=== PATIENT | female | born 1965 | race Caucasian/White ===

== ENCOUNTER 2016-10-21 14:31 | Emergency (ER) | payer OTHER ==
[2016-10-21 15:18] VITALS: TEMP 98; BMI 30.7
[2016-10-21 16:38] LABS: BASOPHIL 1.3 % (0-2.0); EOSINOPHIL 1.5 % (0-4.5); MCH 30.4 pg (25.7-33.7); MCHC 33.4 g/dl (32.0-36.0); MEAN CELL VOLUME 91.2 fl (80-96); NEUTROPHILS 61.5 % (42.8-82.8); PLATELET COUNT 381 K/MM3 (134-434); RDW 14.5 % (11.6-15.6); WHITE BLOOD COUNT 10.3 K/mm3 (4.0-10.0)
[2016-10-21 16:54] LABS: INR 1.05 (0.82-1.09); PROTHROMBIN TIME (PATIENT) 11.6 SEC (9.98-11.88)
[2016-10-21 17:12] LABS: ALBUMIN 3.7 g/dl (3.4-5.0); ANION GAP 9 (8-16); BILIRUBIN,TOTAL 0.4 mg/dL (0.2-1.0); CALCIUM 8.9 mg/dL (8.5-10.1); CO2 26 mmol/L (21-32); CREATININE 0.7 mg/dL (0.55-1.02); GLUCOSE,RANDOM 84 mg/dL (74-106); MAGNESIUM 2.1 mg/dL (1.8-2.4); SGOT/AST 12 U/L (15-37); SGPT/ALT 27 U/L (12-78)
[2016-10-21 17:14] LABS: ALK PHOS 80 U/L (45-117); TROPONIN I < 0.02 ng/ml (0.00-0.05)
--- NOTE | 2016-10-21 17:24 | EKG ---
Test Reason : Blood Pressure : / mmHG Vent. Rate : 048 BPM Atrial Rate : 048 BPM P-R Int : 170 ms QRS Dur : 076 ms QT Int : 424 ms P-R-T Axes : 042 052 049 degrees QTc Int : 378 ms SINUS BRADYCARDIA OTHERWISE NORMAL ECG WHEN COMPARED WITH ECG OF 18-AUG-2015 13:04, NO SIGNIFICANT CHANGE WAS FOUND Confirmed by PAM MADDEN MD ([id number]) on 10/21/2016 5:23:58 PM Referred By: Confirmed By:PAM MADDEN MD
[2016-10-21] MEDS ORDERED: ACETAMINOPHEN 325 MG TABLET (FP) PO ONE (17:34)
--- NOTE | 2016-10-21 17:35 | PDOC ---
History of Present Illness <Kamille Camacho - Last Filed: 10/21/16 17:45> - General History Source: Patient Exam Limitations: No Limitations <Tip Villalta - Last Filed: 10/26/16 02:26> - General Chief Complaint: Chest Pain Stated Complaint: SENT BY PCP Time Seen by Provider: 10/21/16 16:18 - History of Present Illness Initial Comments: 10/21/16 19:33 Patient is a 51 year old female with significant medical hx of GERD, cervical CA , and HLD who is presenting to the ED with one week of neck pain and several days of chest pain. The patient states she was washing dishes when she developed her neck pain. Her pain worsens with moving her head and positional change. The patient then developed left sided chest pain that is diffuse and worsens when she has the neck pain. She states when her pain is neck pain is intense she feels associated dizziness. The patient endorses feeling generalized weakness today. Denies fever, chills, nausea, vomiting, diarrhea. The pt denies worsening of the pain on exertion. Pt dnies any vision changes, facial numbnes/tingling, extremity numbness/ tingling/weakness. no hx of cad, denies smoking (Tip Villalta) Past History <Kamille Camacho - Last Filed: 10/21/16 17:45> - Past Medical History Cancer: Yes (CERVICAL) GI Disorders: Yes (GERD, DIVERTICULOSIS) Hypercholesterolemia: Yes - Surgical History Orthopedic Surgery: Yes (RT.ROTATOR CUFF 2002) - Psycho/Social/Smoking Cessation Hx Anxiety: No Suicidal Ideation: No Smoking History: Never smoked Have you smoked in the past 12 months: No Hx Alcohol Use: No Drug/Substance Use Hx: No Substance Use Type: None <Tip Villalta - Last Filed: 10/26/16 02:26> - Past Medical History Allergies/Adverse Reactions: Allergies Allergy/AdvReac Type Severity Reaction Status Date / Time No Known Allergies Allergy Verified 10/21/16 15:15 Home Medications: Ambulatory Orders Ibuprofen 800 mg PO TID #30 tablet 10/21/16 Methocarbamol [Robaxin -] 500 mg PO TID #30 tablet 10/21/16 Review of Systems <Kamille Camacho - Last Filed: 10/21/16 17:45> - Review of Systems Able to Perform ROS?: Yes <Tip Villalta - Last Filed: 10/26/16 02:26> - Review of Systems Comments:: 10/21/16 19:34 CONSTITUTIONAL: Reported: Generalized Weakness No reported: Fever, Chills, Diaphoresis, Malaise, Loss of Appetite HEENT: No reported: Rhinorrhea, Nasal Congestion, Throat Pain, Throat Swelling, Difficulty Swallowing, Mouth Swelling, Ear Pain, Eye Pain, Visual Changes CARDIOVASCULAR: Reported: Chest Pain No reported: Syncope, Palpitations, Irregular Heart Rate, Lightheadedness, Peripheral Edema RESPIRATORY: No reported: Cough, Shortness of Breath, SOB with Exertion, Orthopnea, Wheezing , Stridor, Hemoptysis GASTROINTESTINAL: No reported: Abdominal pain, Abdominal Distension, Nausea, Vomiting, Diarrhea, Constipation, Melena, Hematochezia GENITOURINARY: No reported: Dysuria, Frequency, Urgency, Hesitancy, Flank Pain, Genital Pain MUSCULOSKELETAL: Reported: Neck Pain No reported: Myalgia, Arthralgia, Joint Swelling, Back pain SKIN: No reported: Rash, Itching, Pallor HEMEATOLOGIC/IMMUNOLOGIC: No reported: Easy Bleeding, Easy Bruising, Lymphadenopathy, Frequent infections ENDOCRINE: No reported: Unexplained Weight Gain, Unexplained Weight Loss, Heat Intolerance , Cold Intolerance NEUROLOGIC: Reported: Dizziness No reported: Headache, Focal Weakness, Paresthesias, Lightheadedness, Unsteady Gait, Seizure, Mental Status Changes, Incontinence PSYCHIATRIC: No reported: Anxiety, Depression (PawanTip) *Physical Exam <Kamille Camacho - Last Filed: 10/21/16 17:45> <Tip Villalta - Last Filed: 10/26/16 02:26> - Vital Signs Last Vital Signs Temp Pulse Resp BP Pulse Ox 98 F 65 18 145/65 99 10/21/16 15:15 10/21/16 18:38 10/21/16 18:38 10/21/16 18:38 10/21/16 18:38 - Physical Exam Comments: 10/21/16 19:34 GENERAL: The patient is awake, alert, and fully oriented, Nontoxic - in no acute distress. HEAD: Normocephalic, atraumatic. EYES: extraocular movements intact, sclera anicteric, conjunctiva clear. ENT: Normal voice, Moist mucous membranes. NECK: Normal range of motion, supple, no carotid bruit, mild diffuse tenderness of trapezius b/l LUNGS: Breath sounds equal, clear to auscultation bilaterally. No wheezes, no rhonchi, no rales. HEART: Regular rate and rhythm, normal S1 and S2 without murmur, rub or gallop. ABDOMEN: Soft, nontender, normoactive bowel sounds. No guarding, no rebound. . No CVA tenderness EXTREMITIES: Normal range of motion, no edema. No clubbing or cyanosis. No cords, erythema, or tenderness. NEUROLOGICAL: No facial assymetry, Normal speech, PSYCH: Normal mood, normal affect. SKIN: Warm, Dry, normal turgor, (Tip Villalta) Heart Score/ECG Review <Kamille Camacho - Last Filed: 10/21/16 17:45> <Tip Villalta - Last Filed: 10/26/16 02:26> - ECG Impressions Comment:: 10/21/16 18:47 Twelve-lead EKG was performed and reviewed by me. There is normal sinus rhythm with a rate of [address] changes suggestive of acute ischemia normal axis normal r wave progression impression: sinus bradycardia (Tip Villalta) ED Treatment Course - LABORATORY CBC & Chemistry Diagram: 10/21/16 15:40 10/21/16 15:40 <Kamille Camacho - Last Filed: 10/21/16 17:45> - LABORATORY CBC & Chemistry Diagram: 10/21/16 15:40 10/21/16 15:40 <Tip Villalta - Last Filed: 10/26/16 02:26> - ADDITIONAL ORDERS Additional order review: 10/21/16 15:40 RBC 4.36 MCV 91.2 MCHC 33.4 RDW 14.5 MPV 9.0 D Neutrophils % 61.5 Lymphocytes % 27.4 Monocytes % 8.3 Eosinophils % 1.5 Basophils % 1.3 - RADIOLOGY Radiology Studies Ordered: Category Date Time Status NECK CTA [CT] Stat CT Scan 10/21/16 17:34 Completed Radiograph Interpretation: 10/21/16 17:46 Chest X-Ray Impression: No acute pathology. Reported By: Alcon Cuba MD (Kamille Camacho) - Medications Given in the ED: ED Medications Discontinued Medications Generic Name Dose Route Start Last Admin Trade Name Debra PRN Reason Stop Dose Admin Acetaminophen 650 mg 10/21/16 17:34 10/21/16 18:14 Tylenol - PO 10/21/16 17:35 650 mg ONCE ONE Administration Ibuprofen 800 mg 10/21/16 21:51 10/21/16 22:20 Motrin - PO 10/21/16 21:52 800 mg ONCE ONE Administration Methocarbamol 500 mg 10/21/16 21:51 10/21/16 22:21 Robaxin - PO 10/21/16 21:52 500 mg ONCE ONE Administration Medical Decision Making <Kamille Camacho - Last Filed: 10/21/16 17:45> <Tip Villalta - Last Filed: 10/26/16 02:26> - Medical Decision Making 10/21/16 18:47 51y F hx of hl, gerd presents with 1 week of neck pain that seems positional, followed by several days of chest pain and dizziness. The sypmtoms are worse with movement and pain seems reproducible to palpation. No exertional sypmtoms. Suspect possible MSK pain - however with constellation of neck pain, dizziness/ consider possible carotid dissection. will ck labs, r/o acs with troponin, screening ekg cbc, cmp to r/o anemia, metabolic derangement ct neck to r/o dissection tylenol for pain pt was signed out to dr. regalado to fu with results and reasses the patient. (Tip Villalta) *DC/Admit/Observation/Transfer <Kamille Camacho - Last Filed: 10/21/16 17:45> <Tip Villalta - Last Filed: 10/26/16 02:26> Diagnosis at time of Disposition: Cervical radiculopathy - Discharge Dispostion Disposition: HOME Condition at time of disposition: Stable - Prescriptions Prescriptions: Ibuprofen 800 mg PO TID #30 tablet Methocarbamol [Robaxin -] 500 mg PO TID #30 tablet - Referrals Referrals: Kim Nazario [employer] [Primary Care Provider] - - Patient Instructions Printed Discharge Instructions: DI for Cervical Radiculopathy Additional Instructions: TAke medication as directed. Follow up with your doctor as needed if symptoms don't improve Print Language: PERSIAN
[2016-10-21] MEDS ORDERED: ACETAMINOPHEN 325 MG TABLET (FP) ONE (18:08)
[2016-10-21] MEDS ORDERED: METHOCARBAMOL 500 MG TABLET PO ONE (21:51)
[2016-10-21] MEDS ORDERED: IBUPROFEN 400 MG TABLET (FP) PO ONE ×2 (21:51→22:15)
--- NOTE | 2016-10-21 21:54 | PDOC ---
*Physical Exam - Vital Signs Last Vital Signs Temp Pulse Resp BP Pulse Ox 98 F 60 19 152/78 100 10/21/16 15:15 10/21/16 15:15 10/21/16 15:15 10/21/16 15:15 10/21/16 15:15 ED Treatment Course - LABORATORY CBC & Chemistry Diagram: 10/21/16 15:40 10/21/16 15:40 - ADDITIONAL ORDERS Additional order review: Laboratory Results 10/21/16 10/21/16 15:40 15:40 INR 1.05 Sodium 139 Potassium 4.5 Chloride 104 Carbon Dioxide 26 Anion Gap 9 BUN 9 Creatinine 0.7 Creat Clearance w eGFR > 60 Random Glucose 84 Calcium 8.9 Magnesium 2.1 Total Bilirubin 0.4 D AST 12 L ALT 27 D Alkaline Phosphatase 80 Creatine Kinase 92 Troponin I < 0.02 Total Protein 7.0 Albumin 3.7 10/21/16 15:40 RBC 4.36 MCV 91.2 MCHC 33.4 RDW 14.5 MPV 9.0 D Neutrophils % 61.5 Lymphocytes % 27.4 Monocytes % 8.3 Eosinophils % 1.5 Basophils % 1.3 - Medications Given in the ED: ED Medications Discontinued Medications Generic Name Dose Route Start Last Admin Trade Name Freq PRN Reason Stop Dose Admin Acetaminophen 650 mg 10/21/16 17:34 10/21/16 18:14 Tylenol - PO 10/21/16 17:35 650 mg ONCE ONE Administration Medical Decision Making - Medical Decision Making 10/21/16 21:52 Pt feels better. CTA of neck is negative. CE is negative. Pt to be discharged. Pt advised to follow up with her pcp. *DC/Admit/Observation/Transfer Diagnosis at time of Disposition: Cervical radiculopathy - Discharge Dispostion Disposition: HOME Condition at time of disposition: Stable Admit: No - Patient Instructions Printed Discharge Instructions: DI for Cervical Radiculopathy Additional Instructions: TAke medication as directed. Follow up with your doctor as needed if symptoms don't improve Print Language: DOMINICAN
[2016-10-21] MEDS ORDERED: METHOCARBAMOL 500 MG TABLET ONE (22:15)
[2016-10-21 22:24] VITALS: BP 145/65; PULSE 65
== END 2016-10-21 22:24 | disposition home or self-care (01) ==
LOC: JER 14:31
DX: M54.12 Radiculopathy, cervical region (principal); K21.9 Gastro-esophageal reflux disease without esophagitis; E78.00 Pure hypercholesterolemia, unspecified; Z85.41 Personal history of malignant neoplasm of cervix uteri
CPT/HCPCS: 36415; 70498-TC; 71010-TC; 80053; 82550; 83735; 84484; 85025; 85610; 93005; 93010; 99285-25

== ENCOUNTER 2017-12-21 14:35 | Emergency (ER) | payer OTHER ==
[2017-12-21 14:49] VITALS: TEMP 97.6; BMI 29.0
--- NOTE | 2017-12-21 14:52 | PDOC ---
Rapid Medical Evaluation Chief Complaint: Pain Time Seen by Provider: 12/21/17 14:46 Medical Evaluation: Allergies Allergy/AdvReac Type Severity Reaction Status Date / Time No Known Allergies Allergy Verified 12/21/17 14:45 12/21/17 14:48 c/o abd pain x 1 week - no fever, + nausea and 1 episode of vomiting, no problems with bowels but not much stool. No one at home ill, 12/21/17 14:51 I have performed a brief in-person evaluation of this patient. The patient presents with a chief complaint of: abd pain Pertinent physical exam findings: pale, walks slowly, mild diffuse abd pain. I have ordered the following:UA, CBC, CMP,Lipase The patient will proceed to the ED for further evaluation
[2017-12-21] MEDS ORDERED: morphine CARPU-JECT 4 MG/1 ML DISP.SYRIN IVPUSH ONE (15:47)
[2017-12-21] MEDS ORDERED: ONDANSETRON 4 MG/2 ML VIAL IVPUSH ONE (15:47)
[2017-12-21] MEDS ORDERED: SODIUM CHLORIDE 1,000 ML IV STA (15:47)
--- NOTE | 2017-12-21 15:55 | PDOC ---
History of Present Illness - General Chief Complaint: Pain Stated Complaint: LT SIDE PAIN Time Seen by Provider: 12/21/17 14:46 History Source: Patient - History of Present Illness Initial Comments: 12/21/17 15:51 Patient is a 52F with history of diverticulitis or diverticulosis (patient is not sure) here today complaining of 9 days of left lower quadrant abdominal pain radiating to her back. She complains of associated chills, nausea, and vomiting. She states that she had one episode of non-bloody, non-bilious emesis yesterday. Last bowel movement was today. Denies pain with urination. Denies prior surgical history. Last bowel movement was today. Denies chest pain and shortness of breath. Patient states that her abdominal pain makes it feel like she cannot walk. Past History - Past Medical History Allergies/Adverse Reactions: Allergies Allergy/AdvReac Type Severity Reaction Status Date / Time No Known Allergies Allergy Verified 12/21/17 14:45 Home Medications: Ambulatory Orders Diclofenac Sodium 50 mg PO DAILY 12/21/17 Ibuprofen [Advil -] 600 mg PO QID PRN 12/21/17 Naproxen Sodium [Flanax] 220 mg PO DAILY 12/21/17 Cancer: Yes (CERVICAL) COPD: No GI Disorders: Yes (GERD, DIVERTICULOSIS) Hypercholesterolemia: Yes - Surgical History Orthopedic Surgery: Yes (RT.ROTATOR CUFF 2002) - Immunization History Immunization Up to Date: Yes - Suicide/Smoking/Psychosocial Hx Smoking History: Never smoked Have you smoked in the past 12 months: No Hx Alcohol Use: No Drug/Substance Use Hx: No Substance Use Type: None Review of Systems - Review of Systems Comments:: 12/21/17 15:55 GENERAL/CONSTITUTIONAL: No fever or chills. No weakness. HEAD, EYES, EARS, NOSE AND THROAT: No change in vision. No sore throat. CARDIOVASCULAR: No chest pain or shortness of breath RESPIRATORY: No cough, wheezing, or hemoptysis. GASTROINTESTINAL: Positive for nausea, vomiting. Negative for diarrhea or constipation. GENITOURINARY: No dysuria, frequency, or change in urination. MUSCULOSKELETAL: No joint or muscle swelling or pain. No neck or back pain. SKIN: No rash NEUROLOGIC: No headache, vertigo, loss of consciousness, or change in strength/ sensation. HEMATOLOGIC/LYMPHATIC: No anemia, easy bleeding, or history of blood clots. ALLERGIC/IMMUNOLOGIC: No hives or skin allergy. *Physical Exam - Vital Signs Last Vital Signs Temp Pulse Resp BP Pulse Ox 97.6 F 72 19 140/94 99 12/21/17 14:46 12/21/17 14:46 12/21/17 14:46 12/21/17 14:46 12/21/17 14:46 - Physical Exam Comments: 12/21/17 15:55 GENERAL: Awake, alert, and fully oriented, in no acute distress HEAD: No signs of trauma, normocephalic, atraumatic EYES: PERRLA, EOMI, sclera anicteric, conjunctiva clear ENT: Auricles normal inspection, hearing grossly normal, nares patent, oropharynx clear without exudates. Moist mucosa NECK: Normal ROM, supple, no lymphadenopathy, JVD, or masses LUNGS: No distress, speaks full sentences, clear to auscultation bilaterally HEART: Regular rate and rhythm, normal S1 and S2, no murmurs, rubs or gallops, peripheral pulses normal and equal bilaterally. ABDOMEN: Soft, tender in LLQ, +rebound, +L CVA tenderness, +suprapubic tenderness EXTREMITIES: Normal inspection, Normal range of motion, no edema. No clubbing or cyanosis. NEUROLOGICAL: Cranial nerves II through XII grossly intact. Normal speech, no focal sensorimotor deficits SKIN: Warm, Dry, normal turgor, no rashes or lesions noted. ED Treatment Course - LABORATORY CBC & Chemistry Diagram: 12/21/17 16:00 12/21/17 16:00 - RADIOLOGY Radiology Studies Ordered: Category Date Time Status ABDOMEN & PELVIS CT WITH CONTR [CT] Stat CT Scan 12/21/17 15:49 Ordered Medical Decision Making - Medical Decision Making 12/21/17 15:56 Patient is 52F with history of diverticulitis/diverticulosis here today complaining of LLQ abdominal pain. Vital signs normal and stable. PE shows rebound, CVA tenderness, LLQ tenderness, suprapubic tenderness. DDx includes, but is not limited to: UTI/pyelo, diverticulitis, pancreatitis. Will treat with fluids, morphine, zofran. Will evaluate with abdominal labs, abd/pelvis ct. 12/21/17 18:12 Laboratory Tests 12/21/17 12/21/17 12/21/17 16:00 16:00 16:00 WBC 8.6 Hgb 13.0 Plt Count 409 BUN 8 Creatinine 0.7 Lipase 131 Urine Nitrite Negative Ur Leukocyte Esterase Negative CBC normal. CMP reassuring. UA negative. Pending CT. 12/21/17 19:[address] Zheng *DC/Admit/Observation/Transfer Diagnosis at time of Disposition: Abdominal pain - Discharge Dispostion Condition at time of disposition: Stable - Referrals Referrals: Roxanne Hogan MD [Primary Care Provider] - - Patient Instructions - Post Discharge Activity
--- NOTE | 2017-12-21 15:58 | PDOC ---
Attending Attestation - HPI HPI: 12/21/17 16:05 The patient is a 52 year old female, with a significant past medical history of diverticulosis, hyperlipidemia, and cervical cancer, who presents to the emergency department with left lower quadrant pain for approximately 2 weeks. She reports her pain is sharp and radiates into her back and down her left leg. Patient reports her pain is exacerbated when bearing weight on her left foot. She reports weakness and dizziness secondary to pain. She report associated nausea and one episode of nonbloody/nonbilious vomiting. Patient reports she has been taking Advil for her symptoms with moderate relief; however as of 4 days ago the Advil provides her with no relief. She denies any hemoptysis, diarrhea, constipation, melena, or hematochezia. She denies any fever, chills, cough, headache, or lightheadedness. She denies any dysuria, hematuria, frequency, or urgency. She denies any chest pain, shortness of breath, diaphoresis, or palpitations. Allergies: NKDA Past Surgical History: Right shoulder surgery Social History: Non smoker. No ETOH or recreational drug use. - Medical Decision Making 12/21/17 16:05 Documentation prepared by Rachael Peñaloza, acting as medical records auditor for Kacey Rand MD. <Rachael Peñaloza - Last Filed: 12/21/17 16:05> - Resident Resident Name: ChrisJefry - ED Attending Attestation I have performed the following: I have examined & evaluated the patient, The case was reviewed & discussed with the resident, I agree w/resident's findings & plan, Exceptions are as noted - Physicial Exam PE: GENERAL: Awake, alert, and fully oriented, in no acute distress HEAD: No signs of trauma EYES: PERRLA, EOMI, sclera anicteric, conjunctiva clear ENT: Auricles normal inspection, hearing grossly normal, nares patent, oropharynx clear without exudates. Dry mucosa NECK: Normal ROM, supple, no lymphadenopathy, JVD, or masses LUNGS: Breath sounds equal, clear to auscultation bilaterally. No wheezes, and no crackles HEART: Regular rate and rhythm, normal S1 and S2, no murmurs, rubs or gallops ABDOMEN: Soft, +LLQ tenderness with guarding and rebound. +Hyperactive bowel sounds. No masses EXTREMITIES: Normal range of motion, no edema. No clubbing or cyanosis. No cords, erythema, or tenderness NEUROLOGICAL: Cranial nerves II through XII grossly intact. Normal speech, normal gait SKIN: Warm, Dry, normal turgor, no rashes or lesions noted. - Medical Decision Making Pt with LLQ tenderness and nausea. Will obtain CT r/o diverticulitis. <Kacey Rand - Last Filed: 12/21/17 16:33>
[2017-12-21] MEDS ORDERED: ONDANSETRON 4 MG/2 ML VIAL ONE (15:59)
[2017-12-21] MEDS ORDERED: morphine SULFATE 4 MG/ML VIAL ONE (15:59)
[2017-12-21 16:40] LABS: EOS % 0.5 % (0-4.5); HEMATOCRIT 39.3 % (32.4-45.2); LYMPH % 22.4 % (8-40); MCH 30.7 pg (25.7-33.7); MCHC 33.1 g/dl (32.0-36.0); MEAN CELL VOLUME 92.8 fl (80-96); MEAN PLT VOLUME 8.7 fl (7.5-11.1); MONO % 6.8 % (3.8-10.2); NEUT % 69.3 % (42.8-82.8); PLATELET COUNT 409 K/MM3 (134-434); RBC 4.23 M/mm3 (3.60-5.2); RDW 14.4 % (11.6-15.6); WHITE BLOOD COUNT 8.6 K/mm3 (4.0-10.0)
[2017-12-21 16:50] LABS: URINE APPEARANCE CLEAR; URINE BILIRUBIN NEGATIVE (<2.0 mg/dL); URINE BLOOD NEGATIVE (NEGATIVE); URINE COLOR LTYELLOW; URINE GLUCOSE (UA) NEGATIVE (NEGATIVE); URINE KETONE NEGATIVE (NEGATIVE); URINE LEUK ESTERASE NEGATIVE (NEGATIVE); URINE NITRITE NEGATIVE (NEGATIVE); URINE PROTEIN NEGATIVE (NEGATIVE); URINE UROBILINOGEN NEGATIVE mg/dL (0.2-1.0)
[2017-12-21 17:03] LABS: ALBUMIN 3.7 g/dl (3.4-5.0); ALK PHOS 99 U/L (45-117); ANION GAP 6 (8-16); BILIRUBIN,TOTAL 0.2 mg/dL (0.2-1.0); BLOOD UREA NITROGEN 8 mg/dL (7-18); CALCIUM 8.7 mg/dL (8.5-10.1); CHLORIDE 102 mmol/L (98-107); CO2 29 mmol/L (21-32); CREATININE 0.7 mg/dL (0.55-1.02); GLUCOSE,RANDOM 90 mg/dL (74-106); LIPASE 131 U/L (73-393); POTASSIUM 4.5 mmol/L (3.5-5.1); SGOT/AST 13 U/L (15-37); SGPT/ALT 26 U/L (12-78); SODIUM 137 mmol/L (136-145)
[2017-12-21 17:55] VITALS: BP 129/67; PULSE 51
--- NOTE | 2017-12-21 20:31 | PDOC ---
*Physical Exam - Vital Signs Last Vital Signs Temp Pulse Resp BP Pulse Ox 97.6 F 51 L 18 129/67 100 12/21/17 14:46 12/21/17 17:52 12/21/17 17:52 12/21/17 17:52 12/21/17 17:52 - Physical Exam Comments: 12/21/17 20:31 GENERAL: Awake, alert, and fully oriented, in no acute distress HEAD: No signs of trauma, normocephalic, atraumatic EYES: PERRLA, EOMI, sclera anicteric, conjunctiva clear ENT: Hearing grossly normal, nares patent, oropharynx clear without exudates. Moist mucosa NECK: Normal ROM, supple, no lymphadenopathy, JVD, or masses LUNGS: No distress, speaks full sentences, clear to auscultation bilaterally HEART: Regular rate and rhythm, normal S1 and S2, no murmurs, rubs or gallops, peripheral pulses normal and equal bilaterally.+ LLQ ttp, normoactive bowel sounds. No guarding, no rebound. No masses EXTREMITIES : Normal inspection, Normal range of motion, no edema. No clubbing or cyanosis. NEUROLOGICAL: Cranial nerves II through XII grossly intact. Normal speech, normal gait, no focal sensorimotor deficits SKIN: Warm, Dry, normal turgor, no rashes or lesions noted ED Treatment Course - LABORATORY CBC & Chemistry Diagram: 12/21/17 16:00 12/21/17 16:00 - ADDITIONAL ORDERS Additional order review: Laboratory Results 12/21/17 12/21/17 16:00 16:00 Sodium 137 Potassium 4.5 Chloride 102 Carbon Dioxide 29 Anion Gap 6 L BUN 8 Creatinine 0.7 Creat Clearance w eGFR > 60 Random Glucose 90 Calcium 8.7 Total Bilirubin 0.2 D AST 13 L ALT 26 Alkaline Phosphatase 99 Total Protein 7.0 Albumin 3.7 Lipase 131 Urine Color Ltyellow Urine Appearance Clear Urine pH 8.0 D Ur Specific [place] 1.008 Urine Protein Negative Urine Glucose (UA) Negative Urine Ketones Negative Urine Blood Negative Urine Nitrite Negative Urine Bilirubin Negative Urine Urobilinogen Negative Ur Leukocyte Esterase Negative 12/21/17 16:00 RBC 4.23 MCV 92.8 MCHC 33.1 RDW 14.4 MPV 8.7 Neutrophils % 69.3 Lymphocytes % 22.4 Monocytes % 6.8 Eosinophils % 0.5 Basophils % 1.0 - Medications Given in the ED: ED Medications Discontinued Medications Generic Name Dose Route Start Last Admin Trade Name Debra PRN Reason Stop Dose Admin Sodium Chloride 1,000 mls @ 1,000 mls/hr 12/21/17 15:47 12/21/17 16:07 Normal Saline - IV 12/21/17 16:46 1,000 mls/hr ASDIR STA Administration Morphine Sulfate 4 mg 12/21/17 15:47 12/21/17 16:07 Morphine Injection - IVPUSH 12/21/17 15:48 4 mg ONCE ONE Administration Ondansetron HCl 4 mg 12/21/17 15:47 12/21/17 16:07 Zofran Injection IVPUSH 12/21/17 15:48 4 mg ONCE ONE Administration Medical Decision Making - Medical Decision Making 12/21/17 20:32 52 yo F with h/o diverticulitis/diverticulosis p/w LLQ abdominal pain. VSS,AF, A &OX3. Physical exam with LLQ ttp. No other complaints or findings. Patient has received flu4 mg morphine, 4 mg zofran, and 1 L NS with improvement in pain. CT AP pending. R/o diverticulitis. ED Course: CT AP : No acute pathology. Patient stable for d/c with return precautions. Advised to f/u with PMD and GI. *DC/Admit/Observation/Transfer Diagnosis at time of Disposition: Abdominal pain Qualifiers: Abdominal location: left lower quadrant Qualified Code(s): R10.32 - Left lower quadrant pain - Discharge Dispostion Disposition: HOME Condition at time of disposition: Stable Decision to Admit order: No - Referrals Referrals: Roxanne Hogan MD [Primary Care Provider] - - Patient Instructions Printed Discharge Instructions: DI for Abdominal Pain-Adult Additional Instructions: Please return to the emergency department with any new or worsening symptoms or concerns. Please follow up with your primary care physician within 72 hours. Please follow up with gastroenterology within one week. - Post Discharge Activity - Attestations Physician Attestion: 12/21/17 20:37 I attest to the information provided in this note.
== END 2017-12-21 21:44 | disposition home or self-care (01) ==
LOC: JER 14:35
PROC: 3E033GC Introduction of Other Therapeutic Substance into Peripheral Vein, Percutaneous Approach (ICD-10-PCS; principal; 2017-12-21)
PROC: 3E033NZ Introduction of Analgesics, Hypnotics, Sedatives into Peripheral Vein, Percutaneous Approach (ICD-10-PCS; 2017-12-21)
DX: R10.32 Left lower quadrant pain (principal); Z87.19 Personal history of other diseases of the digestive system; Z85.41 Personal history of malignant neoplasm of cervix uteri; Z87.898 Personal history of other specified conditions
CPT/HCPCS: 36415; 74177-TC; 80053; 81003; 83690; 85025; 96374; 96375; 99282-25; J7030

== ENCOUNTER 2019-02-10 13:31 | Emergency (ER) | payer OTHER ==
[2019-02-10 13:49] VITALS: BP 117/70; PULSE 75; TEMP 98.4
--- NOTE | 2019-02-10 14:22 | PDOC ---
History of Present Illness - General Chief Complaint: Pain, Acute Stated Complaint: DIVERTICULITIS Time Seen by Provider: 02/10/19 14:16 - History of Present Illness Initial Comments: 02/10/19 15:11 HPI: 54 y/o F with history of diverticulosis found on colonoscopy presenting with 5 days of sudden onset LLQ abdominal pain. Pain has been worsening prompting presentation today. Pain feels sharp or dull at times and is intermittent, lasting about 5min at a time but occuring every 30 minutes and is worse after PO intake. She also reports febrile to 100 at home associated with chills. She is nauseous and had 1 episode of emesis 2 days ago. Advil initially relieved pain, however, it has not been providing relief anymore. She denies dysuria, change in bowel habits, chest pain, SOB PMHx: as noted above ROS: as noted SHx: Denies Etoh, IVDA, tobacco use Allergies: Morphine intolerance with dizziness and emesis Past History - Past Medical History Allergies/Adverse Reactions: Allergies Allergy/AdvReac Type Severity Reaction Status Date / Time morphine AdvReac Intermediate Vomiting Verified 02/10/19 15:19 Home Medications: Ambulatory Orders Levofloxacin [Levaquin] 750 mg PO DAILY #9 tablet 02/10/19 metroNIDAZOLE [Flagyl -] 500 mg PO TID 10 Days #29 tablet 02/10/19 Cancer: Yes (CERVICAL) COPD: No GI Disorders: Yes (GERD, DIVERTICULOSIS) Hypercholesterolemia: Yes - Surgical History Orthopedic Surgery: Yes (RT.ROTATOR CUFF 2002) - Immunization History Immunization Up to Date: Yes - Suicide/Smoking/Psychosocial Hx Smoking History: Never smoked Have you smoked in the past 12 months: No Information on smoking cessation initiated: No Hx Alcohol Use: No Drug/Substance Use Hx: No Substance Use Type: None Review of Systems - Review of Systems Comments:: 02/10/19 15:19 GENERAL/CONSTITUTIONAL: +fever, chills. No weakness. HEAD, EYES, EARS, NOSE AND THROAT: No change in vision. No ear pain or discharge. No sore throat. CARDIOVASCULAR: No chest pain or shortness of breath RESPIRATORY: No cough, wheezing, or hemoptysis. GASTROINTESTINAL: +nausea, vomiting. no diarrhea or constipation. GENITOURINARY: No dysuria, frequency, or change in urination. MUSCULOSKELETAL: No joint or muscle swelling or pain. No neck or back pain. SKIN: No rash NEUROLOGIC: No headache, vertigo, loss of consciousness, or change in strength/ sensation. ENDOCRINE: No increased thirst. No abnormal weight change HEMATOLOGIC/LYMPHATIC: No anemia, easy bleeding, or history of blood clots. ALLERGIC/IMMUNOLOGIC: No hives or skin allergy. *Physical Exam - Vital Signs Last Vital Signs Temp Pulse Resp BP Pulse Ox 98.4 F 75 18 117/70 100 02/10/19 13:46 02/10/19 13:46 02/10/19 13:46 02/10/19 13:46 02/10/19 13:46 - Physical Exam Comments: 02/10/19 15:21 GENERAL: Awake, alert, and fully oriented, in moderate acute distress and unable to sit in bed comfortably HEAD: No signs of trauma, normocephalic, atraumatic EYES: EOMI, sclera anicteric, conjunctiva clear ENT: Auricles normal inspection, hearing grossly normal, nares patent, oropharynx clear without exudates. Moist mucosa NECK: Normal ROM, supple, no lymphadenopathy, JVD, or masses LUNGS: No distress, speaks full sentences, clear to auscultation bilaterally HEART: Regular rate and rhythm, normal S1 and S2, no murmurs, rubs or gallops, peripheral pulses normal and equal bilaterally. ABDOMEN: Soft, significant tender to palpation in LLQ with guarding, referred pain in LLQ with palpation in RUQ and RLQ, normoactive bowel sounds. EXTREMITIES : Normal inspection, Normal range of motion, no edema. No clubbing or cyanosis. NEUROLOGICAL: Cranial nerves II through XII grossly intact. Normal speech, normal gait, no focal sensorimotor deficits SKIN: Warm, Dry, normal turgor, no rashes or lesions noted ED Treatment Course - LABORATORY CBC & Chemistry Diagram: 02/10/19 15:12 02/10/19 15:12 Medical Decision Making - Medical Decision Making 02/10/19 15:29 54 y/o F with history of diverticulosis found on colonoscopy presenting with 5 days of sudden onset LLQ abdominal pain associated with nausea and emesis. Physical exam notable for significant LLQ tenderness with guarding -CBC, CMP, UA -CT abd/pel with iv contrast -IV tylenol, zofran, 1L bolus 02/10/19 16:00 WBC 11.8 Cr wnl will proceed to CT 02/10/19 17:39 CT abd/pel w/ contrast: Findings consistent with acute diverticulitis of the distal descending colon without abscess formation. Discussed results with patient and need for 10 days of abx levaquin and flagyl; will receive 1st dose of each prior to DC Patient comfortable DC home with instructions *DC/Admit/Observation/Transfer Diagnosis at time of Disposition: Diverticulitis large intestine w/o perforation or abscess w/o bleeding - Discharge Dispostion Disposition: HOME Condition at time of disposition: Improved Decision to Admit order: No - Prescriptions Prescriptions: Levofloxacin [Levaquin] 750 mg PO DAILY #9 tablet metroNIDAZOLE [Flagyl -] 500 mg PO TID 10 Days #29 tablet - Referrals Referrals: Roxanne Hogan MD [Primary Care Provider] - Bharathi Chambers MD [Staff Physician] - - Patient Instructions Printed Discharge Instructions: DI for Diverticulitis, Low-Fiber/Low-Residue Diet Additional Instructions: Additional Instructions: Please return to the emergency department with any new or worsening symptoms or concerns including severe pain not improving with pain medication, severe vomiting, fever not improving with tylenol. Please take tylenol and ibuprofen (advil) for pain control Please eat a clear liquid diet for the first 48 hours to allow intestine healing and then proceed to a BRAT diet (banana, rice, apple sauce, toast) and proceed to a low fiber diet. Please followup with your GI specialist Dr Chambers within 1 week for further management Please follow up with your primary care physician within 1-2 weeks Instrucciones adicionales: Regrese al departamento de emergencias con cualquier sntoma o inquietud nueva o que empeore, incluido dolor intenso que no mejore con medicamentos para el dolor, vmitos intensos, fiebre que no mejore con tylenol. Avery tylenol e ibuprofeno (advil) para controlar el dolor. Por favor, siga magali dieta de lquidos mulu gricel las primeras 48 horas para permitir la curacin del intestino y luego proceda a magali dieta BRAT (pltano, arroz, salsa de manzana, tostada) y proceda a magali dieta baja en fibra. Por favor, ethan un seguimiento con francis especialista en IG, el Dr. Chambers dentro de magali semana para magali administracin adicional Por favor ethan un seguimiento con francis mdico de atencin primaria dentro de 1 a 2 semanas. Print Language: GREENLANDIC - Post Discharge Activity
[2019-02-10] MEDS ORDERED: ACETAMINOPHEN 1000 MG/100 ML VIAL (NON FORMULARY) IVPB ONE ×2 (14:50→14:58)
[2019-02-10] MEDS ORDERED: ONDANSETRON 4 MG/2 ML VIAL IVPUSH ONE (14:58)
[2019-02-10] MEDS ORDERED: SODIUM CHLORIDE 0.9% 1000 ML INFUS.BAG IV ONE (14:58)
[2019-02-10] MEDS ORDERED: ONDANSETRON 4 MG/2 ML VIAL ONE (15:05)
[2019-02-10] MEDS ORDERED: ACETAMINOPHEN INJECTION 100 ML IVPB ONE (15:05)
[2019-02-10 15:28] LABS: BASO % 0.9 % (0-2.0); HEMOGLOBIN 12.1 GM/dL (10.7-15.3); LYMPH % 19.3 % (8-40); MCH 31.5 pg (25.7-33.7); MCHC 33.5 g/dl (32.0-36.0); MEAN CELL VOLUME 93.9 fl (80-96); MEAN PLT VOLUME 7.8 fl (7.5-11.1); MONO % 7.9 % (3.8-10.2); NEUT % 70.9 % (42.8-82.8); PLATELET COUNT 395 K/MM3 (134-434); RBC 3.84 M/mm3 (3.60-5.2); RDW 14.1 % (11.6-15.6); WHITE BLOOD COUNT 11.8 K/mm3 (4.0-10.0)
--- NOTE | 2019-02-10 15:30 | PDOC ---
Documentation entered by Mari Monae SCRIBE, acting as scribe for Victorino Crandall MD. Victorino Crandall MD: This documentation has been prepared by the Letha ceballos Brenda, SCRIBE, under my direction and personally reviewed by me in its entirety. I confirm that the documentation accurately reflects all work, treatment, procedures, and medical decision making performed by me. Attending Attestation - Resident Resident Name: Kalyn Francis - ED Attending Attestation I have performed the following: I have examined & evaluated the patient, The case was reviewed & discussed with the resident, I agree w/resident's findings & plan, Exceptions are as noted
[2019-02-10 15:32] LABS: EPI CELLS 2.8 /HPF (0-5/HPF); HYALINE CASTS 7 /lpf (0-8); PH,URINE >= 9.0 (5.0-8.0); URINE APPEARANCE CLOUDY; URINE BACTERIA 9.1 /hpf (NEGATIVE); URINE BILIRUBIN NEGATIVE (NEGATIVE); URINE COLOR RED; URINE GLUCOSE (UA) NEGATIVE (NEGATIVE); URINE KETONE NEGATIVE (NEGATIVE); URINE LEUK ESTERASE 1+ (NEGATIVE); URINE NITRITE NEGATIVE (NEGATIVE); URINE PROTEIN 1+ (NEGATIVE); URINE RBC 2142 /hpf (0-4); URINE WBC 8 /hpf (0-5)
[2019-02-10 15:53] LABS: ALBUMIN 3.3 g/dl (3.4-5.0); BILIRUBIN,TOTAL 0.5 mg/dL (0.2-1); BLOOD UREA NITROGEN 5.7 mg/dL (7-18); CALCIUM 8.8 mg/dL (8.5-10.1); CREATININE 0.7 mg/dL (0.55-1.3); POTASSIUM 4.2 mmol/L (3.5-5.1); TOT PROT 6.8 g/dl (6.4-8.2)
[2019-02-10] MEDS ORDERED: metroNIDAZOLE 250 MG TABLET PO ONE (17:20)
[2019-02-10] MEDS ORDERED: levoFLOXacin 750 MG TABLET PO ONE (17:21)
[2019-02-10] MEDS ORDERED: metroNIDAZOLE 250 MG TABLET ONE (18:09)
== END 2019-02-10 18:35 | disposition home or self-care (01) ==
LOC: JER 13:31
PROC: 3E033NZ Introduction of Analgesics, Hypnotics, Sedatives into Peripheral Vein, Percutaneous Approach (ICD-10-PCS; principal; 2019-02-10)
PROC: 3E0337Z Introduction of Electrolytic and Water Balance Substance into Peripheral Vein, Percutaneous Approach (ICD-10-PCS; 2019-02-10)
PROC: 3E033GC Introduction of Other Therapeutic Substance into Peripheral Vein, Percutaneous Approach (ICD-10-PCS; 2019-02-10)
DX: K57.32 Diverticulitis of large intestine without perforation or abscess without bleeding (principal); E78.00 Pure hypercholesterolemia, unspecified; K21.9 Gastro-esophageal reflux disease without esophagitis; Z88.6 Allergy status to analgesic agent
CPT/HCPCS: 36415; 74177-TC; 80053; 81003; 85025; 87086; 99283-25; J0131; J7030

== ENCOUNTER 2019-08-23 17:40 | Emergency (ER) | payer OTHER ==
[2019-08-23 18:16] VITALS: BP 141/77; PULSE 65; TEMP 98.1; BMI 32.1
--- NOTE | 2019-08-23 22:35 | PDOC ---
History of Present Illness - General Chief Complaint: Pain, Acute Stated Complaint: PAIN/DIZZINESS Time Seen by Provider: 08/23/19 18:10 History Source: Patient - History of Present Illness Initial Comments: 08/23/19 22:51 54 year old female with dizziness, headache and lower abdominal pain since yesterday. denies vomiting, diarrhea, urinary symptoms , chest pain. patient sent by PCP for evaluation r/o diverticulitis History: gall stones, low back pain, diveerticulosis 08/24/19 05:44 Past History - Past Medical History Allergies/Adverse Reactions: Allergies Allergy/AdvReac Type Severity Reaction Status Date / Time morphine AdvReac Intermediate Vomiting Verified 08/23/19 18:09 Home Medications: Ambulatory Orders Acetaminophen [Tylenol] 650 mg PO QID PRN 08/23/19 Cholecalciferol (Vitamin D3) [Vitamin D3 -] 1,000 unit PO DAILY 08/23/19 Fluticasone Prop 0.05% Nasal [Flonase -] 1 - 2 spray NS DAILY 08/23/19 Gabapentin 400 mg PO TID 08/23/19 Mirabegron [Myrbetriq] 50 mg PO DAILY 08/23/19 Omeprazole 40 mg PO DAILY 08/23/19 Cancer: Yes (CERVICAL) COPD: No GI Disorders: Yes (GERD, DIVERTICULOSIS) Hypercholesterolemia: Yes - Surgical History Orthopedic Surgery: Yes (RT.ROTATOR CUFF 2002) - Immunization History Immunization Up to Date: Yes - Psycho Social/Smoking Cessation Hx Smoking History: Never smoked Have you smoked in the past 12 months: No Hx Alcohol Use: No Drug/Substance Use Hx: No Substance Use Type: None Review of Systems - Review of Systems Able to Perform ROS?: Yes Is the patient limited Danish proficient: No Constitutional: No: Symptoms Reported, See HPI, Chills, Diaphoresis, Fever, Loss of Appetite, Malaise, Night Sweats, Weakness, Weight Stable, Unintentional Wgt. Loss, Unexplained wgt Loss, Other Respiratory: No: Symptoms reported, See HPI, Cough, Orthopnea, Shortness of Breath, SOB with Exertion, SOB at Rest, Stridor, Wheezing, Productive cough, Hemoptysis, Other ABD/GI: Yes: Abdominal cramping. No: Symptoms Reported, See HPI, Abdominal Distended, Abd. Pain w/ defecation, Blood Streaked Bowels, Constipated, Diarrhea , Difficulty Swallowing, Nausea, Poor Appetite, Poor Fluid Intake, Rectal Bleeding, Vomiting, Indigestion, Tarry Stools, Other : No: Symptoms Reported, See HPI, Burning, Dysuria, Discharge, Frequency, Flank Pain, Hematuria, Incontinence, Pain, Urgency, Testicular Mass, Testicular Swelling, Lesions, Testicular Pain, Other *Physical Exam - Vital Signs Last Vital Signs Temp Pulse Resp BP Pulse Ox 98.1 F 65 18 141/77 99 08/23/19 18:14 08/23/19 18:14 08/23/19 18:14 08/23/19 18:14 08/23/19 18:14 - Physical Exam General Appearance: Yes: Appropriately Dressed Respiratory/Chest: positive: Lungs Clear, Normal Breath Sounds Cardiovascular: positive: Regular Rhythm, Regular Rate Gastrointestinal/Abdominal: positive: Normal Bowel Sounds, Tender (lower abdominal tenderness), Soft Musculoskeletal: positive: Normal Inspection. negative: CVA Tenderness Extremity: positive: Normal Capillary Refill, Normal Inspection, Normal Range of Motion Integumentary: positive: Normal Color, Dry, Warm Neurologic: positive: Fully Oriented, Alert ED Treatment Course - LABORATORY CBC & Chemistry Diagram: 08/24/19 00:25 08/24/19 00:25 ED Progress Note - Progress Note Progress Note: 08/24/19 05:4 a: aBDOMINAL PAIN; back pain;l dizziness P: cbc cmp lipase ua Medical Decision Making - Medical Decision Making 08/24/19 02:38 CTAP:Lung bases are clear. The visualized cardiac chambers are normal size and configuration. Normal liver, gallbladder, pancreas, spleen, adrenal glands and kidneys. The stomach and abdominal small and large bowel are normal. There is no aortic aneurysm. There is no significant retroperitoneal lymphadenopathy. The pelvic small and large bowel are normal. The appendix is normal. An endometrial nodule could represent a submucosal fibroid or polyp. No adnexal masses. Urinary bladder is unremarkable. There is no pelvic free fluid. No discrete pelvic lymphadenopathy is identified. 08/24/19 04:08 patient reports feeling better. no headache no dizziness. will d/chome Discharge - Discharge Information Problems reviewed: Yes Clinical Impression/Diagnosis: Dizziness Back pain Qualifiers: Back pain location: low back pain Chronicity: acute Back pain laterality: bilateral Sciatica presence: without sciatica Qualified Code(s): M54.5 - Low back pain Abdominal pain Qualifiers: Abdominal location: lower abdomen, unspecified Qualified Code(s): R10.30 - Lower abdominal pain, unspecified Condition: Improved Disposition: HOME - Follow up/Referral Referrals: Kirsten Garcia MD [Primary Care Provider] - Call tomorrow - Patient Discharge Instructions Patient Printed Discharge Instructions: Low Back Pain Additional Instructions: You may take ibuprofen every 6 hours as needed for pain. It is very important that you follow-up with your doctor. Drink plenty of fluids. Return to the emergency room for any worsening symptoms - Post Discharge Activity Work/Back to School Note: Back to Work
--- NOTE | 2019-08-23 22:40 | PDOC ---
*Physical Exam - Vital Signs Last Vital Signs Temp Pulse Resp BP Pulse Ox 98.1 F 65 18 141/77 99 08/23/19 18:14 08/23/19 18:14 08/23/19 18:14 08/23/19 18:14 08/23/19 18:14 ED Treatment Course - LABORATORY CBC & Chemistry Diagram: 08/24/19 00:25 08/24/19 00:25 Medical Decision Making - Medical Decision Making 08/23/19 22:40 Patient seen by the advanced practice provider under my direct supervision. Ancillary testing reviewed as necessary. I agree with plan as outlined by the advanced practice provider. Discharge - Discharge Information Problems reviewed: Yes Clinical Impression/Diagnosis: Abdominal pain Qualifiers: Abdominal location: lower abdomen, unspecified Qualified Code(s): R10.30 - Lower abdominal pain, unspecified - Follow up/Referral Referrals: Kirsten Garcia MD [Primary Care Provider] - - Patient Discharge Instructions - Post Discharge Activity
[2019-08-23] MEDS ORDERED: SODIUM CHLORIDE 1,000 ML IV STA (22:54)
[2019-08-23] MEDS ORDERED: METOCLOPRAMIDE HCL INJECTION 10 MG/2 ML VIAL IVPB ONE (22:55)
[2019-08-24 00:46] LABS: BASO % 1.1 % (0-2.0); EOS % 1.4 % (0-4.5); HEMATOCRIT 41.2 % (32.4-45.2); HEMOGLOBIN 13.8 GM/dL (10.7-15.3); LYMPH % 37.2 % (8-40); MCH 31.6 pg (25.7-33.7); MCHC 33.5 g/dl (32.0-36.0); MEAN CELL VOLUME 94.2 fl (80-96); MEAN PLT VOLUME 8.7 fl (7.5-11.1); MONO % 7.3 % (3.8-10.2); PLATELET COUNT 387 K/MM3 (134-434); RBC 4.38 M/mm3 (3.60-5.2); RDW 13.8 % (11.6-15.6); WHITE BLOOD COUNT 9.4 K/mm3 (4.0-10.0)
[2019-08-24 00:50] LABS: URINE APPEARANCE CLEAR; URINE BILIRUBIN NEGATIVE (NEGATIVE); URINE COLOR YELLOW; URINE GLUCOSE (UA) NEGATIVE (NEGATIVE); URINE KETONE NEGATIVE (NEGATIVE); URINE LEUK ESTERASE NEGATIVE (NEGATIVE); URINE NITRITE NEGATIVE (NEGATIVE); URINE PROTEIN NEGATIVE (NEGATIVE); URINE UROBILINOGEN 0.2 mg/dL (0.2-1.0)
[2019-08-24 01:10] LABS: ALBUMIN 3.8 g/dl (3.4-5.0); BILIRUBIN,TOTAL 0.3 mg/dL (0.2-1); BLOOD UREA NITROGEN 6.2 mg/dL (7-18); CALCIUM 9.4 mg/dL (8.5-10.1); CREATININE 0.7 mg/dL (0.55-1.3); POTASSIUM 4.2 mmol/L (3.5-5.1); TOT PROT 7.3 g/dl (6.4-8.2)
[2019-08-24] MEDS ORDERED: ACETAMINOPHEN 500 MG TABLET (FP) PO ONE (01:32)
[2019-08-24] MEDS ORDERED: METOCLOPRAMIDE HCL INJECTION 10 MG/2 ML VIAL ONE (01:58)
[2019-08-24] MEDS ORDERED: KETOROLAC TROMETHAMINE 30 MG/1 ML VIAL IVPUSH ONE (02:37)
[2019-08-24] MEDS ORDERED: KETOROLAC TROMETHAMINE 30 MG/1 ML VIAL ONE (03:13)
[2019-08-24] MEDS ORDERED: ACETAMINOPHEN 500 MG TABLET (FP) ONE (03:13)
== END 2019-08-24 04:18 | disposition home or self-care (01) ==
LOC: JER 17:40
PROC: 3E0337Z Introduction of Electrolytic and Water Balance Substance into Peripheral Vein, Percutaneous Approach (ICD-10-PCS; principal; 2019-08-23)
PROC: 3E0333Z Introduction of Anti-inflammatory into Peripheral Vein, Percutaneous Approach (ICD-10-PCS; 2019-08-23)
PROC: 3E033GC Introduction of Other Therapeutic Substance into Peripheral Vein, Percutaneous Approach (ICD-10-PCS; 2019-08-23)
DX: R10.30 Lower abdominal pain, unspecified (principal); E78.00 Pure hypercholesterolemia, unspecified; K21.9 Gastro-esophageal reflux disease without esophagitis; Z87.19 Personal history of other diseases of the digestive system; Z85.41 Personal history of malignant neoplasm of cervix uteri
CPT/HCPCS: 36415; 74177-TC; 80053; 81003; 83690; 85025; 96361; 96374; 96375; 99282-25; J7030; Q9967

== ENCOUNTER 2022-03-04 15:25 | Emergency (ER) | payer OTHER ==
[2022-03-04 15:35] VITALS: BP 119/71; PULSE 67; RESP 18; TEMP 97.8; BMI 30.2
== END 2022-03-04 17:55 | disposition home or self-care (01) ==
LOC: JERFT 15:25
PROC: 0U9L0ZZ Drainage of Vestibular Gland, Open Approach (ICD-10-PCS; principal; 2022-03-04)
DX: Z75.1 Person awaiting admission to adequate facility elsewhere (principal)
CPT/HCPCS: 56420; 99283-25

== ENCOUNTER 2022-05-12 20:41 | Emergency (ER) | payer OTHER ==
[2022-05-12 20:47] VITALS: BP 132/62; PULSE 85; RESP 18; TEMP 98.1; BMI 29.8
[2022-05-12 22:34] LABS: BASO % 0.9 % (0-2.0); EOS % 3.9 % (0-4.5); HEMATOCRIT 41.1 % (32.4-45.2); HEMOGLOBIN 13.8 GM/dL (10.7-15.3); MCHC 33.7 g/dl (32.0-36.0); MEAN CELL VOLUME 95.1 fl (80-96); MEAN PLT VOLUME 8.3 fl (7.5-11.1); MONO % 7.1 % (3.8-10.2); NEUT % 59.1 % (42.8-82.8); PLATELET COUNT 367 10^3/uL (134-434); RBC 4.32 M/mm3 (3.60-5.2); RDW 13.7 % (11.6-15.6); WHITE BLOOD COUNT 9.1 K/mm3 (4.0-10.0)
[2022-05-12 22:39] LABS: EPI CELLS 9 /uL (0-25.1); HYALINE CASTS 13 /uL (0-3.1); URINE APPEARANCE CLEAR; URINE BACTERIA >9,000 /uL (0-1359); URINE BILIRUBIN NEGATIVE (NEGATIVE); URINE COLOR YELLOW; URINE GLUCOSE (UA) NEGATIVE (NEGATIVE); URINE KETONE TRACE (NEGATIVE); URINE LEUK ESTERASE 2+ (NEGATIVE); URINE NITRITE NEGATIVE (NEGATIVE); URINE PROTEIN NEGATIVE (NEGATIVE); URINE RBC 62 /uL (0-23.9); URINE UROBILINOGEN 0.2 mg/dL (0.2-1.0); URINE WBC 555 /uL (0-25.8)
[2022-05-12 23:05] LABS: CALCIUM 9.6 mg/dL (8.5-10.1)
[2022-05-12 23:06] LABS: ALBUMIN 3.9 g/dl (3.4-5.0)
[2022-05-12 23:09] LABS: CREATININE 0.7 mg/dL (0.55-1.3)
[2022-05-12 23:10] LABS: BILIRUBIN,TOTAL 0.3 mg/dL (0.2-1); TOT PROT 7.2 g/dl (6.4-8.2)
[2022-05-12] MEDS ORDERED: CEPHALEXIN MONOHYDRATE 500 MG CAPSULE (UD) PO ONE (23:27)
[2022-05-12] MEDS ORDERED: CEPHALEXIN MONOHYDRATE 500 MG CAPSULE (UD) ONE (23:49)
== END 2022-05-12 23:55 | disposition home or self-care (01) ==
LOC: JER 20:41
DX: N30.00 Acute cystitis without hematuria (principal)
CPT/HCPCS: 36415; 80053; 81003; 85025; 87086; 87186; 99283-25

== ENCOUNTER → 2022-06-05 | Day surgery (SDC) | payer OTHER | END | disposition home or self-care (01) | LOC: FMAMMOTONE 08:24 | PROVIDERS: ATTEND Family Medicine | PROC: 0HBU3ZX Excision of Left Breast, Percutaneous Approach, Diagnostic (ICD-10-PCS; principal; 2022-06-05) | DX: N60.12 Diffuse cystic mastopathy of left breast (principal); N60.22 Fibroadenosis of left breast; N60.32 Fibrosclerosis of left breast; N60.82 Other benign mammary dysplasias of left breast; N60.92 Unspecified benign mammary dysplasia of left breast; N64.89 Other specified disorders of breast; R92.0 Mammographic microcalcification found on diagnostic imaging of breast | CPT/HCPCS: 19081; 19082; 76098-TC-FY; 88305-TC; A4648 ==

== ENCOUNTER → 2022-06-27 | Day surgery (SDC) | payer OTHER | END | disposition home or self-care (01) | LOC: JRADUS-SUR 10:50 | PROVIDERS: ATTEND Surgery Surgical Oncology | PROC: BH01ZZZ Plain Radiography of Left Breast (ICD-10-PCS; principal; 2022-06-27) | DX: N60.92 Unspecified benign mammary dysplasia of left breast (principal) | CPT/HCPCS: 19281; A4648 ==

== ENCOUNTER 2022-07-02 04:03 | Day surgery (SDC) | payer OTHER ==
[2022-06-30 17:12] VITALS: BMI 30.7
[2022-07-02] MEDS ORDERED: ONDANSETRON 4 MG/2 ML VIAL IVPUSH PRN (13:48)
[2022-07-02] MEDS ORDERED: oxyCODONE HCL 5 MG TABLET PO PRN (13:48)
[2022-07-02] MEDS ORDERED: LACTATED RINGERS SOLUTION 1,000 ML IV SCH (14:00)
[2022-07-02] MEDS ORDERED: FENTANYL CITRATE/PF 50 MCG/ML VIAL ONE ×3 (14:18→15:59)
[2022-07-02] MEDS ORDERED: MIDAZOLAM HCL 2 MG/2 ML SINGLE DOSE VIAL ONE (14:18)
[2022-07-02] MEDS ORDERED: DEXAMETHASONE SOD PHOSPHATE 4 MG/1 ML VIAL ONE (14:18)
[2022-07-02] MEDS ORDERED: ONDANSETRON 4 MG/2 ML VIAL ONE (14:18)
[2022-07-02] MEDS ORDERED: PROPOFOL 20 ML ONE (14:18)
[2022-07-02] MEDS ORDERED: LIDOCAINE HCL/PF 2% SDV 5ML VIAL ONE (14:18)
[2022-07-02] MEDS ORDERED: BUPIVACAINE HCL/PF 0.5% (5MG/ML) 10 ML VIAL IJ ONE ×3 (14:43→15:05)
[2022-07-02] MEDS ORDERED: LIDOCAINE 1%/EPI 1:100000 (50 ML MULTI DOSE VIAL) NR ONE ×2 (14:44→14:50)
[2022-07-02] MEDS ORDERED: BENZOIN/ALOE VERA/STORAX/TOLU 58 ML BOTTLE TP ONE (15:11)
[2022-07-02 17:00] VITALS: RESP 18
[2022-07-02 17:53] VITALS: BP 124/64; PULSE 59; TEMP 97.8
== END 2022-07-02 17:35 | disposition home or self-care (01) ==
LOC: JASU-SURG 04:03
PROVIDERS: ATTEND Surgery Surgical Oncology
PROC: 0HBU0ZX Excision of Left Breast, Open Approach, Diagnostic (ICD-10-PCS; principal; 2022-07-02 14:30)
DX: N60.22 Fibroadenosis of left breast (principal); N60.92 Unspecified benign mammary dysplasia of left breast
CPT/HCPCS: 76098-TC-FY; 88307-TC; 88342-TC; 94760